=== PATIENT | female | born 1975 | race Caucasian/White ===

== ENCOUNTER 2019-07-29 17:39 | Emergency (ER) | payer OTHER, SELFPAY ==
[2019-07-29] VITALS (9 sets, daily range): BP systolic 112–131; BP diastolic 63–83; PULSE 68–87; RESP 11–23; TEMP 36.5–36.9; O2SAT 98–100
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
[2019-07-29 18:19] LABS: Abs Immature Grans 0.01 k/cumm (0.0-0.09); Absolute Basophil Count 0.02 k/cumm (0.0-0.2); Absolute Eosinophil Count 0.34 k/cumm (0.0-0.7); Absolute Lymphocyte Count 1.84 k/cumm (1.2-3.4); Absolute Monocyte Count 0.29 k/cumm (0.11-0.7); Absolute Neutrophil Count 3.75 k/cumm (1.2-6.7); Basophils % 0.3; Eosinophils % 5.4; HCT 43.7 % (36.0-46.0); HGB 14.6 g/dL (12.0-15.5); Immature Grans % 0.2; Lymphocytes % 29.4; Mean Corp. HGB Concentration 33.4 g/dL (32.0-36.0); Mean Corpuscular Hemoglobin 29.6 pg (27.0-33.0); Mean Corpuscular Volume 88.5 fL (80-95); Mean Platelet Volume 9.8 fL (8.0-11.0); Monocytes % 4.6; Neutrophils % 60.1; Platelet Count 274 x1000/uL (130-400); RBC 4.94 m/cumm (4.00-5.20); RBC Distribution Width 12.1 % (11.7-14.6); White Blood Cell Count 6.25 k/cumm (4.4-10.8)
[2019-07-29] MEDS: Ketorolac 15 MG/ML VIAL IVP (18:23)
[2019-07-29] MEDS: Normal Saline 1,000 ML 150 ML IV (18:23)
[2019-07-29 18:31] LABS: ALT 23 U/L (14-59); AST 15 U/L (15-37); Albumin 3.8 g/dL (3.4-5.0); Alkaline Phosphatase 71 U/L (46-116); Anion Gap 8.3 mmol/L (3-11); BUN 10 mg/dL (7-18); Bilirubin, Total 0.2 mg/dL (0.2-1.0); CO2 28.7 mmol/L (21.0-32.0); CREATININE 0.92 mg/dL (0.55-1.02); Calcium 9.1 mg/dL (8.5-10.1); Chloride 102 mmol/L (98-107); Glucose 92 mg/dL (70-100); Potassium 3.5 mmol/L (3.5-5.1); Sodium 139 mmol/L (136-145); Total Protein 7.8 g/dL (6.4-8.2)
--- NOTE | 2019-07-29 18:35 | DI.CT_ITS ---
SYMPTOM/DIAGNOSIS: FELL; LT SHOULDER PAIN, CLAVICLE INJURY, CHEST PAIN, NECK PAIN AND HEAD INJURY CRANIAL CT (WITHOUT CONTRAST): A noncontrast cranial CT was performed. The ventricular system is normal in appearance. There is no evidence of an intracranial mass lesion. There is no evidence of a subdural or epidural hematoma. No focal areas of decreased attenuation are seen. CONCLUSION: Normal noncontrast Cranial CT. CERVICAL SPINE CT: CT examination of the cervical region was performed with multi slice acquisition and multi planar reconstruction. There is no evidence of an acute fracture or dislocation. Tracheolaryngeal structures appear intact. No cervical mass or adenopathy is seen. IMPRESSION: Normal cervical spine CT. No evidence of acute cervical injury. CHEST CT: CT examination of the chest was performed with a bolus infusion of 70 cc's of Omnipaque 350. Note is made of a mildly displaced mid clavicular fracture on the left. No additional bony injury is seen. Lungs are clear and well expanded. No evidence of vascular injury. No mediastinal hematoma or adenopathy. Minimal apparent right apical scarring noted. No pleural effusion, hemothorax or pneumothorax. Images obtained through the upper abdomen show unremarkable appearance of visualized portions of liver, spleen, kidneys, adrenals and pancreas. Prior cholecystectomy noted. CONCLUSION: Left clavicular fracture. No additional injury is seen.
[2019-07-29] MEDS: Normal Saline Flush 10 ML SYR IVP (18:49)
[2019-07-29] MEDS: Omnipaque 350 MG/ML 100 ML BTL IJ (18:49)
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
[2019-07-29] MEDS: HYDROcodone 5/Acetaminophen 325 TAB PO (19:20)
[2019-07-29] MEDS: Acetaminophen 500 MG TAB PO (19:40)
== END 2019-07-29 20:10 | disposition home or self-care (01) ==
PROVIDERS: Emergency Provider Emergency Medicine
DX: S42.025A Nondisplaced fracture of shaft of left clavicle, initial encounter for closed fracture (principal); V18.0XXA Pedal cycle driver injured in noncollision transport accident in nontraffic accident, initial encounter; Y93.55 Activity, bike riding; M54.2 Cervicalgia
CPT/HCPCS: 23500; 36415; 80053; 81025; 96361; 96374; 99284; 70450; 71260; 72125; 85025; J1885; J3490; L3650